=== PATIENT | male | born 1985 | race Caucasian/White ===

== ENCOUNTER → 2024-05-18 | Outpatient (CLI) | payer OTHER | LOC: M CARPUL 08:44 | PROVIDERS: ATTEND Physician Assistant | DX: R05.3 Chronic cough (principal); R06.02 Shortness of breath; Z65.5 Exposure to disaster, war and other hostilities; R91.8 Other nonspecific abnormal finding of lung field; S22.080A Wedge compression fracture of T11-T12 vertebra, initial encounter for closed fracture ==

== ENCOUNTER → 2024-07-20 | Outpatient (CLI) | payer OTHER ==
[~2024-07-20] MED LIST: METHACHOLINE KIT (6 VIAL.NEB PREMIX) INH ONE
== END ==
LOC: EDUNIT# 05-25 09:00 → M CARPUL 07:29
PROVIDERS: ATTEND Physician Assistant
DX: R06.02 Shortness of breath (principal)
CPT/HCPCS: 94070; 95070; J7674